=== PATIENT | male | born 1960 | race Two or more races ===

== ENCOUNTER 2024-04-15 17:40 | Emergency (ER) | payer OTHER, SELFPAY ==
[2024-04-15 17:43] VITALS: BP 168/102
--- NOTE | 2024-04-15 18:14 | ED.GENMED ---
History of Present Illness
General
Chief Complaint: Back Pain
Source: patient
Exam Limitations: none
Time Seen by Provider: 04/15/24 17:56
History of Present Illness
History of Present Illness:
This is a 64 year old male that comes in with c/o left sided low back pain. States that he had done some swimming and the next day he felt like his back tightened up on him. States that today it continued to get worse. states that he had a
low grade fever at home. States that there is no radiation to the buttocks or down the leg. States that he was nauseated. Denies any chills, chest pain, SOB, abd pain, vomiting, diarrhea, bladder or stool incontinence, headache, dizziness, urinary
burning.
Past History
Past History
ED Past Medical History: None; Negative Asthma, HTN, Hypercholesterolemia or NIDDM
ED Past Surgical History: Orthopedic (Right hip replacement, Right hand surgery)
Social History
Tobacco: Non-smoker
Alcohol: Occasional
Personal:
Living: with family
Review of Systems
Review of Systems
All Other Systems: ROS reviewed and negative except as documented in HPI and ROS
Constitutional: Reports fever (Low grade, ); Denies chills
EENT: Reports no symptoms
Respiratory: Reports no symptoms; Denies cough or trouble breathing
Cardiac: Reports no symptoms; Denies chest pain
ABD/GI: Reports nausea; Denies abdominal pain, vomiting or diarrhea
: Reports no symptoms; Denies dysuria, frequency or urgency
Musculoskeletal: Reports back pain (Left sided low back pain)
Skin: Reports no symptoms
Neurological: Reports no symptoms; Denies dizzy or headache
Psychiatric: Reports no symptoms
Phy Exam
General Physical Exam
General Presentation: mild distress
General age: appears stated age
General Skin: warm and dry
General Habitus: normal
General Mental: alert
General Hydration: dry mucous membranes
ENT Exam
ENT Exam: TM's normal, pharynx normal and neck supple
Eye Exam
Eye Exam: EOMI
Cardiovascular Exam
Cardiovascular Exam: regular rate/rhythm, no edema, no murmur and normal peripheral pulses
Pulmonary Exam
Pulmonary Exam: lungs clear, no respiratory distress, no rales, chest non tender, no crackles, no rhonchi, no wheezing and no cough
Gastrointestinal Exam
Gastrointestinal Exam: normal bowel sounds, non tender, soft, no organomegaly, no pulsatile mass, non distended and no cva tenderness
Musculoskeletal Exam
Musculoskeletal Exam: full ROM, no edema and other (Negative discomfort with straight leg raise, going up on his toes, Slightly with turning to the left and can bend about 35 degree's forward. )
Skin Exam
Skin Exam: normal color, warm/dry, no rash and no petechia
Psychiatric Exam
Psychiatric Exam: normal mood/affect
Course
Orders/Labs/Results
Orders:
Orders
04/15/24 18:13
CT Lumbar Spine W/ Iv Contrast Urgent
Reason For Exam: left sided low back pain, fever
0.9% Sodium Chloride 1000 ml [Nss] 1,000 ml IV BOLUS
04/15/24 18:14
Acetaminophen [Tylenol] 1,000 mg PO NOW STA
Ketorolac [Toradol] 30 mg IV NOW STA
04/15/24 18:29
Complete Blood Count/With Diff Urgent
Comprehensive Metabolic Panel Urgent
Lactic Acid Urgent
Urinalysis Reflex To Culture Urgent
Date Specimen was Collected: 04/15/24
Time Specimen was Collected: 18:17
Urine Microscopic Reflex Cult Urgent
04/15/24 19:52
Dexamethasone Sod Phosphate [Decadron] 20 mg IV NOW STA
04/15/24 20:16
Oxycodone [Roxicodone] 5 mg PO NOW STA
Abnormal Lab Results
04/15/24
18:29
Absolute Neuts (auto) 6.8 H 10^3/uL
(1.4-6.5)
Absolute Lymphs (auto) 0.2 L 10^3/uL
(1.2-3.4)
Neutrophils % 92.6 H %
(42.2-75.2)
Lymphocytes % 3.0 L %
(20.5-51.1)
Glucose 154 H mg/dl
(70-99)
Lactic Acid 2.1 H mmol/L
(0.7-2.0)
Total Bilirubin 1.4 H mg/dl
(0.2-1.3)
ALT 58 H U/L
(0-50)
Urine Ketones Trace A
(Negative)
Ur Occult Blood Reflex 4+ A
(Negative)
Urine Bilirubin 1+ A
(Negative)
Urine Urobilinogen 2+ A
(Neg - 1+)
Urine RBC 7-10 A /HPF
(0-2)
Urine Bacteria (Reflex) Few A
(Negative)
Urine Albumin (Reflex) 1+ A
(Neg - Trace)
04/15/24 18:29
04/15/24 18:29
Hyperglycemia, Total marek slightly elevated. ALT slightly elevated. Urine negative for infection. lactic acid elevated at 2.1
Vital Signs
Initial and Last Documented VS:
Initial Vital Signs
Temp Pulse Resp BP Pulse Ox
98.4 F 114 22 168/102 95
04/15/24 17:43 04/15/24 17:43 04/15/24 17:43 04/15/24 17:43 04/15/24 17:43
Last Documented Vital Signs
Temp Pulse Resp BP Pulse Ox
99.2 F 114 22 158/95 94
04/15/24 18:17 04/15/24 17:43 04/15/24 17:43 04/15/24 18:34 04/15/24 19:15
Environmental Issues Instructor consulted with Physician
Environmental Issues Instructor consulted with physician?: Yes
Name of Physician Consulted: Dr. Mello
MDM/Problems Addressed
Differential Diagnosis Includes:
Kidney infection. Degenerative disc, Lumbar abscess
MDM/Problems Addressed:
This is a 64 year old male that comes in with c/o low back pain. States that he went swimming and the next day his back started to tighten up. Denies any injury or falls.
Patient temp on exam at this time was 101.8. Will check labs, Give IV fluids. Get urine and CT the Lumbar spine with contrast to c/o an abscess. Will give Tylenol and Toradol for fever and pain.
Back into see patient and . Explained that his blood work shows that his Blood sugar is elevated but this is not fasting. His Total marek and ALT are mildly elevated. CT shows that there are multilevel degenerative changes and budging disc.
Patient will need to follow up with the delivery specialist. Patient to alternate with Tylenol 1000mg every 6 hours and Ibuprofen 600mg every 6 hours with food. Will also sent a narcotic pain medication to his pharmacy. Patient can also follow up
with the family doctor for further evaluation and a Urologist for his renal cyst. Patient to return with any concerns.
Chronic conditions affecting care:
NA
Acute Exacerbation and/or Progression of Chronic Illness:
NA
*Radiology
Radiology exam reviewed: radiology read reviewed (Approximate 5.5 cm simple right renal cyst, incompletely included on this study. Degeneratvie changes and disc bulges at multiple levels, as noted above, most prominent at the L4-L5. Please see above
detailed comments. NO findings to suggest lumbar vertebral compression fractures. )
*Pulse Oximetry
Patient hypoxic: no
*EKG
Interpreted by ED Provider?: NA
Rate: EKG- N/A
*Moving Picture Operator Interpretation
Rate: Moving Picture Operator- N/A
*Critical Care Note
Total Time (30-74mins, 75-104mins- exclusive of procedures): Not Applicable
ED Attending Note
-
Portions of this chart may have been created with voice recognition software.� Occasional wrong word or��sound alike� substitutions may have occurred due to the inherent limitations of voice recognition software.
Discharge Plan
Departure
Patient Disposition: Home (Routine Discharge)
Date of Disposition: 04/15/24
Time of Disposition: 20:41
Patient with high blood pressure during this ER visit?: Yes
Condition: Good
Covid-19: Not Applicable
Discharge Problem:
Low back pain
Instructions: Low Back Pain (DC), BLOOD PRESSURE
Prescriptions:
New
oxycodone 5 mg tablet
5 mg PO Q6H PRN (Reason: Pain) Qty: 15 0RF
Referrals:
Tashi White MD [Active] - Follow up in 2-3 days
Robby Craft MD [Family Provider] - Follow up in 2-3 days
Activity Restrictions/Additional Instructions:
As discussed, your blood work shows that your Blood sugar is elevated. Please follow up with the family doctor for repeat labs. Your Liver enzymes are slightly elevated and your CT shows you have a renal cyst. Your CT also shows that you have
degenerative change in the back and bulging disc. Please follow up with the delivery specialist for further evaluation. Please increase your water intake to 8-8oz glasses daily. You may use Tylenol 1000mg every 6 hours for pain and ibuprofen 600mg
every 6 hours with food for pain and alternate them. So if you take Tylenol at 9am then the Ibuprofen as 12 noon and the Tylenol at 3pm and the Ibuprofen at 6pm. You have also had a prescription for Oxycodone sent to your Pharmacy. This is more
severe pain. You may also use heat or ice to the low back. Rest. IF YOU HAVE INCREASED PAIN, ARE UNABLE TO CONTROL YOUR FEVER, OR YOU HAVE ANY OTHER CONCERNS PLEASE RETURN TO THE EMERGENCY ROOM.
Interventions
Interventions:
*Risk Screen - Suicide Last Done: 04/15/24 17:43
*General Assessment Last Done: 04/15/24 17:52
*Neglect/Abuse Screening Last Done: 04/15/24 17:43
ED- Fall Risk Assessment Last Done: 04/15/24 17:52
*ED COVID-19 Vaccine History Last Done: 04/15/24 17:52
ED-Musculoskeletal Assessment Last Done: 04/15/24 17:52
Discharge Date and Time
Print Language: IRISH
[2024-04-15 18:16] VITALS: BP 147/84
[2024-04-15 18:28] VITALS: BMI 32.6
[2024-04-15] MEDS: TYLENOL 1000 MG PO (18:30)
[2024-04-15] MEDS: TORADOL 30 MG IV (18:30)
[2024-04-15] MEDS: NSS 1000 IV (18:31)
[2024-04-15 18:34] VITALS: BP 158/95
[2024-04-15 18:43] LABS: % Basophils 0.3 % (0-2); % Immature Granulocytes 0.3 % (0-0.5); % Monocytes 3.8 % (1.7-9.3); % Neutrophils 92.6 % (42.2-75.2); Absolute Lymphocytes 0.2 10^3/uL (1.2-3.4); Absolute Monocytes 0.3 10^3/uL (0.1-0.6); Absolute Neutrophils 6.8 10^3/uL (1.4-6.5); Hematocrit 43.4 % (39.0-52.0); Hemoglobin 14.9 g/dL (13.0-18.0); Mean Corp Hgb Conc. 34.3 g/dL (33.0-37.0); Mean Corpuscular Hgb 29.2 pg (27.0-31.0); Mean Corpuscular Volume 85.1 fL (80.0-94.0); Nucleated Red Blood Cells % 0 % (-); Platelet Count 136 10^3/uL (130-400); White Blood Cell Count 7.3 10^3/uL (4.8-10.8)
[2024-04-15 18:51] LABS: Lactic Acid 2.1 mmol/L (0.7-2.0)
[2024-04-15 19:01] LABS: ALT (SGPT) 58 U/L (0-50); AST (SGOT) 43 U/L (17-59); Albumin 4.2 g/dl (3.5-5.0); Alkaline Phosphatase 60 U/L (38-126); Blood Urea Nitrogen 19 mg/dl (9-20); Calcium 9.4 mg/dl (8.4-10.2); Carbon Dioxide 23 mmol/L (22-30); Chloride 103 mmol/L (98-107); Estimated Creatinine Clearance 79 ml/min; Glucose 154 mg/dl (70-99); Sodium 140 mmol/L (135-145); Total Bilirubin 1.4 mg/dl (0.2-1.3); eGFR > 60.00
[2024-04-15 19:17] LABS: Urine Albumin 1+ (Neg - Trace); Urine Bilirubin 1+ (Negative); Urine Character Clear (Clear); Urine Color Amber; Urine Glucose Negative (Negative); Urine Ketone Trace (Negative); Urine Leukocyte Negative (Negative); Urine Nitrite Negative (Negative); Urine Occult Blood 4+ (Negative); Urine Specific Gravity 1.025 (<1.030); Urine Urobilinogen 2+ (Neg - 1+)
[2024-04-15 19:29] LABS: Urine Bacteria Few (Negative); Urine Squamous Cell 0-2 /LPF (Few); Urine White Cell 0-2 /HPF (0-5)
[2024-04-15] MEDS: DECADRON 20 MG IV (20:13)
[2024-04-15] MEDS: ROXICODONE 5 MG PO (20:18)
== END 2024-04-15 21:05 | disposition home or self-care (01) ==
LOC: EMR 17:40
PROVIDERS: Clinical Nurse Specialist Family Health; EMERGENCY PHYSICIAN Emergency Medicine; FAMILY PHYSICIAN Family Medicine
DX: M54.50 Low back pain, unspecified (principal); R11.0 Nausea; R50.9 Fever, unspecified; N28.1 Cyst of kidney, acquired; R03.0 Elevated blood-pressure reading, without diagnosis of hypertension; Z96.641 Presence of right artificial hip joint
CPT/HCPCS: 99284; 96361; 96374; 96375; 72132; 80053; 81003; 81015; 83605; 85025; Q9967

== ENCOUNTER → 2024-05-31 08:25 | Outpatient (REF) | payer OTHER, SELFPAY | LOC: PAVMRI 08:25 | PROVIDERS: ATTENDING PHYSICIAN Physical Medicine & Rehabilitation; FAMILY PHYSICIAN Family Medicine | DX: M48.07 Spinal stenosis, lumbosacral region (principal); M48.062 Spinal stenosis, lumbar region with neurogenic claudication | CPT/HCPCS: 72148 ==

== ENCOUNTER 2024-07-14 07:05 | Emergency (ER) | payer OTHER, SELFPAY ==
[2024-07-14 07:10] VITALS: BP 117/85
[2024-07-14 07:48] VITALS: BP 136/81; BMI 26.8
[2024-07-14] MEDS: PERCOCET 5/325 1 TABLET PO (08:38)
[2024-07-14 09:27] LABS: Urine Albumin 1+ (Neg - Trace); Urine Bilirubin Negative (Negative); Urine Character Clear (Clear); Urine Color Yellow; Urine Glucose Negative (Negative); Urine Ketone Negative (Negative); Urine Leukocyte Negative (Negative); Urine Nitrite Negative (Negative); Urine Occult Blood 2+ (Negative); Urine Urobilinogen Negative (Neg - 1+)
[2024-07-14 09:29] LABS: % Basophils 0.6 % (0-2); % Eosinophils 1.9 % (0-6); % Immature Granulocytes 1.9 % (0-0.5); % Lymphocytes 8.6 % (20.5-51.1); % Monocytes 9.1 % (1.7-9.3); % Neutrophils 77.9 % (42.2-75.2); Absolute Basophils 0.1 10^3/uL (0-0.2); Absolute Eosinophils 0.2 10^3/uL (0-0.7); Absolute Immature Granulocytes 0.2 10^3/uL (0-0.05); Absolute Lymphocytes 0.8 10^3/uL (1.2-3.4); Absolute Monocytes 0.9 10^3/uL (0.1-0.6); Absolute Neutrophils 7.6 10^3/uL (1.4-6.5); Hematocrit 39.9 % (39.0-52.0); Hemoglobin 13.2 g/dL (13.0-18.0); Mean Corp Hgb Conc. 33.1 g/dL (33.0-37.0); Mean Corpuscular Hgb 28.1 pg (27.0-31.0); Mean Corpuscular Volume 84.9 fL (80.0-94.0); Mean Platelet Volume 9.6 fL (7.4-10.4); Nucleated Red Blood Cells % 0 % (-); Platelet Count 206 10^3/uL (130-400); Red Cell Dist. Width 16.5 % (11.5-14.5); White Blood Cell Count 9.8 10^3/uL (4.8-10.8)
[2024-07-14 09:43] LABS: ALT (SGPT) 36 U/L (0-50); AST (SGOT) 21 U/L (17-59); Albumin 3.9 g/dl (3.5-5.0); Alkaline Phosphatase 75 U/L (38-126); Blood Urea Nitrogen 18 mg/dl (9-20); Calcium 9.8 mg/dl (8.4-10.2); Carbon Dioxide 26 mmol/L (22-30); Chloride 100 mmol/L (98-107); Estimated Creatinine Clearance 72 ml/min; Glucose 121 mg/dl (70-99); Potassium 4.3 mmol/L (3.5-5.1); Sodium 135 mmol/L (135-145); Total Bilirubin 0.9 mg/dl (0.2-1.3); Total Protein 6.7 g/dl (6.3-8.2); eGFR > 60.00
[2024-07-14 10:23] LABS: Urine White Cell 0-2 /HPF (0-5)
[2024-07-14 10:40] LABS: Erythrocyte Sed Rate 42 mm/hour (0-20)
[2024-07-14 11:03] LABS: Body Fluid Mononuclear 30.2 %; Body Fluid Polymorphonuclear 69.8 %; Body Fluid WBC 6735 /CUMM
[2024-07-14 11:12] LABS: Body Fluid Second Tech RP
--- NOTE | 2024-07-14 12:12 | ED.MUSCINJ ---
HPI-Injury
General
Chief Complaint: Musculo-Skeletal Complaint
Source: patient
Exam Limitations: none
Time Seen by Provider: 07/14/24 07:59
History of Present Illness-Injury
Initial Injury comments:
64-year-old male presents for evaluation of right knee swelling and pain starting 2 days ago. Of note, patient had epidural abscess 6 weeks ago. Was treated with 6 weeks worth of vancomycin and Rocephin. He was transition oral Levaquin and
linezolid. 2 days ago he started with right knee pain and swelling. He stopped the Levaquin and linezolid. He denies a fever. No known injury. He does have a history of gout. No back pain. No nausea or vomiting. No other complaints at this
time
Past History
Past History
ED Past Medical History: None; Negative Asthma, HTN, Hypercholesterolemia or NIDDM
ED Past Surgical History: Orthopedic (Right hip replacement, Right hand surgery)
Social History
Tobacco: Non-smoker
Alcohol: Occasional
Personal:
Living: with family
Phy Exam
Physical Exam
Physical Exam:
General: Well-appearing male no acute respiratory distress
Musculoskeletal exam: Right knee with large effusion decreased motion and tender diffusely. No excessive warmth.
Vascular: 2+ dorsalgia pedis pulse right foot
Skin: Slightly erythematous still left over from his vancomycin. This is diffuse over his trunk and arms. No significant erythema over the right knee
Injury Course
Orders/Labs/Results
Orders:
Orders
07/14/24 07:44
Knee, Right 1 or 2 Views [CR Knee - Right 1 Or 2 Views] Urgent
Comment:
Reason For Exam: pain and swelling with no trauma
07/14/24 08:24
Oxycodone/Acetaminophen [Percocet 5/325] 1 tablet PO NOW STA
07/14/24 08:59
Body Fluid Cell Count Urgent
What is the Body Fluid: joint
Date Specimen was Collected: 07/14/24
Time Specimen was Collected: 08:43
Comment: with DIFF
Body Fluid Crystals Urgent
What is the Body Fluid: joint
Date Specimen was Collected: 07/14/24
Time Specimen was Collected: 08:43
CRP [C-Reactive Protein] Urgent
Complete Blood Count/With Diff Urgent
Comprehensive Metabolic Panel Urgent
Sed Rate [Erythrocyte Sed Rate] Urgent
Blood Culture Q30M
ABDULLAHI Source: Blood/Venous
Specimen Description:
Blood Culture Q30M
ABDULLAHI Source: Blood/Venous
Specimen Description:
07/14/24 09:00
Fluid Culture with Gram Stain Urgent
ABDULLAHI Source: Joint Fluid
Specimen Description:
Date Specimen was Collected: 07/14/24
Time Specimen was Collected: 08:43
07/14/24 09:12
Urinalysis Reflex To Culture Urgent
Date Specimen was Collected: 07/14/24
Time Specimen was Collected: 09:11
Urine Microscopic Reflex Cult Urgent
Abnormal Lab Results
07/14/24 07/14/24
08:59 09:12
RDW 16.5 H %
(11.5-14.5)
Abs Immat Gran (auto) 0.2 H 10^3/uL
(0-0.05)
Absolute Neuts (auto) 7.6 H 10^3/uL
(1.4-6.5)
Absolute Lymphs (auto) 0.8 L 10^3/uL
(1.2-3.4)
Absolute Monos (auto) 0.9 H 10^3/uL
(0.1-0.6)
Immature Gran % 1.9 H %
(0-0.5)
Neutrophils % 77.9 H %
(42.2-75.2)
Lymphocytes % 8.6 L %
(20.5-51.1)
ESR 42 H mm/hour
(0-20)
Glucose 121 H mg/dl
(70-99)
C-Reactive Protein 158.70 H mg/L
(0.0-10.00)
Ur Occult Blood Reflex 2+ A
(Negative)
Urine RBC 3-6 A /HPF
(0-2)
Urine Albumin (Reflex) 1+ A
(Neg - Trace)
07/14/24 08:59
07/14/24 08:59
MDM/Problems Addressed
Differential Diagnosis Includes:
Right knee effusion question traumatic versus inflammation versus infectious and septic arthritis.
Check labs. Serum white blood cell count is 9.8 his CRP is elevated at 158. I reviewed patient's records on his phone which showed a CRP of 2 last week. Sed rate is also elevated at 40. Under sterile conditions the right knee was aspirated.
Approximately 80 to 90 mL of yellow mostly clear-colored fluid was aspirated from the knee and sent for fluid analysis. White blood cell count in the synovial fluid is 6735 with 30% mononuclear cells and 69% polys more focal nuclear cells. There
are calcium pyrophosphate crystals noted in the aspirate as well
X-ray of the right knee shows small joint effusion with degenerative changes. Discussed findings with patient's family as well as infectious disease and orthopedics. Per infectious disease and orthopedics no evidence of septic arthritis by the
workup. Findings most consistent with CPPD. Will supply a 4-day course of prednisone and treat with limited supply of pain medicine. No indication for admission stable for discharge
*Critical Care Note
Total Time (30-74mins, 75-104mins- exclusive of procedures): Not Applicable
ED Attending Note
-
Portions of this chart may have been created with voice recognition software.� Occasional wrong word or��sound alike� substitutions may have occurred due to the inherent limitations of voice recognition software.
Discharge Plan
Departure
Patient Disposition: Home (Routine Discharge)
Date of Disposition: 07/14/24
Time of Disposition: 12:16
Patient with high blood pressure during this ER visit?: No
Discharge Problem:
Calcium pyrophosphate deposition disease
Instructions: Muscle and Bone Pain (DC)
Prescriptions:
New
prednisone 20 mg tablet
40 mg PO DAILY 5 Days Qty: 10 0RF
oxycodone-acetaminophen [Percocet] 5-325 mg tablet
1 tab PO Q4HPRN PRN (Reason: pain) Qty: 10 0RF
No Action
acetaminophen 500 mg Tablet
1,000 mg PO Q6HPRN PRN (Reason: mild pain/fever)
levothyroxine 25 mcg tablet
25 mcg PO DAILY
linezolid 600 mg tablet
600 mg PO BID
amlodipine 10 mg tablet
10 mg PO DAILY
levofloxacin 750 mg tablet
750 mg PO DAILY
Referrals:
Robby Craft MD [Family Provider] -
Activity Restrictions/Additional Instructions:
Use prednisone as directed. Take pain medicine as needed for severe pain. Use brace for support. You should receive a call if your joint fluid culture comes back positive. Please continue to follow-up with infectious disease and your family
doctor. Return if needed otherwise.
Interventions
Interventions:
*Risk Screen - Suicide Last Done: 07/14/24 07:10
*General Assessment Last Done: 07/14/24 07:10
*Neglect/Abuse Screening Last Done: 07/14/24 07:10
ED- Fall Risk Assessment Last Done: 07/14/24 07:48
*ED COVID-19 Vaccine History Last Done: 07/14/24 07:48
ED-Musculoskeletal Assessment Last Done: 07/14/24 07:48
Discharge Date and Time
Print Language: SYRIAC
== END 2024-07-14 13:03 | disposition home or self-care (01) ==
LOC: EMR 07:05
PROVIDERS: Physician Assistant; EMERGENCY PHYSICIAN Emergency Medicine; FAMILY PHYSICIAN Family Medicine
DX: M11.261 Other chondrocalcinosis, right knee (principal)
CPT/HCPCS: 99284; 20610; 73560; 80053; 81003; 81015; 85025; 85652; 86140; 87015; 87040; 87070; 87205; 89051; 89060